=== PATIENT | female | born 1940 ===

== ENCOUNTER 2022-03-17 04:15 | Day surgery (SDC) | payer OTHER ==
[2022-03-17] MEDS ORDERED: FENTANYL CITRATE/PF 50 MCG/ML VIAL ONE ×2 (13:31→14:19)
[2022-03-17] MEDS ORDERED: MIDAZOLAM HCL 2 MG/2 ML SINGLE DOSE VIAL ONE (13:31)
[2022-03-17] MEDS ORDERED: PROPOFOL 20 ML ONE (13:31)
[2022-03-17] MEDS ORDERED: DEXAMETHASONE SOD PHOSPHATE 4 MG/1 ML VIAL ONE (13:54)
[2022-03-17] MEDS ORDERED: ONDANSETRON 4 MG/2 ML VIAL ONE (13:54)
[2022-03-17] MEDS ORDERED: ceFAZolin SODIUM 1 GM VIAL ONE (13:55)
[2022-03-17] MEDS ORDERED: ceFAZolin 2 GRAM PREMIX BAG IVPB ONE (13:57)
[2022-03-17] MEDS ORDERED: LIDOCAINE HCL 1%, 10 MG/ML (20ML VIAL) NR ONE (14:06)
[2022-03-17] MEDS ORDERED: FENTANYL CITRATE/PF 50 MCG/ML VIAL IVPUSH PRN (15:08)
[2022-03-17] MEDS ORDERED: ACETAMINOPHEN 325 MG TABLET (FP) PO ONE (15:08)
[2022-03-17] MEDS ORDERED: ONDANSETRON 4 MG/2 ML VIAL IVPUSH PRN ×2 (15:08→16:12)
[2022-03-17] MEDS ORDERED: PROMETHAZINE HCL 25 MG/1 ML VIAL IVPUSH PRN (16:12)
[2022-03-17] MEDS ORDERED: oxyCODONE HCL 5 MG TABLET PO PRN (16:12)
[2022-03-17] MEDS ORDERED: LACTATED RINGERS SOLUTION 1,000 ML IV SCH (16:15)
[2022-03-17 16:36] VITALS: BP 131/58; PULSE 84; RESP 16; TEMP 96
== END 2022-03-17 16:50 | disposition home or self-care (01) ==
LOC: JASU-SURG 04:15
PROVIDERS: ATTEND Surgery
PROC: 0HBU0ZZ Excision of Left Breast, Open Approach (ICD-10-PCS; principal; 2022-03-17 13:30)
DX: C50.912 Malignant neoplasm of unspecified site of left female breast (principal)
CPT/HCPCS: 88307-TC; 88342-TC; 94760